=== PATIENT | female | born 1995 | race Caucasian/White ===

== ENCOUNTER 2024-06-14 09:47 | Outpatient (AMB) | payer OTHER, SELFPAY ==
--- NOTE | 2024-06-14 10:20 | AM.OFFWIN_ITS ---
Intake Vital Signs 06/14/24 10:27 Weight 110 lb 4 oz BP 120/78 Blood Pressure Location Rt brachial Position Sitting Pulse 100 Pulse Source Pulse Oximeter Temp 98.3 F Temp Source Oral Pulse Oximetry (%) 99 Oxygen Delivery Method Room Air Intake Visit Reasons: EP ? sinus infection Intake Note: Patient here for sinus pressure, teeth pain that has been present for about 6 days, she has been taking sudafed w/no relief. Patient Tobacco Use Status: Never used Tobacco Allergies amoxicillin Allergy (Mild, Verified 06/14/24 10:29) Stomach Upset HPI HPI Comments History of Present Illness Details History - The patient is a 29-year-old female pr esenting with persistent sinus pressure and related symptoms. - Persistent sinus pressure began 6 days ago causing significant discomfort in the sinus region and upper teeth, interfering with sleep. - Despite using pseudoephedrine, symptom s have not improved as expected. - Congestion is present with mucus disch arge after using a neti pot. - Patient denied ear pain and fever. - Reported fatigue potentially related t o acute illness and busy academic schedule. - Previous negative gastrointestinal amarjit ction to amoxicillin and advised on alternative antibiotic cephalexin for potential bacterial cause. - Fluticasone nasal spray was initially used without effect. Physical Exam General: Cooperative, healthy appearing, comfortable and no acute distress Orientation/consciousness: Patient oriented x3 Limitations: No limitations Head: Normal to inspection Ears: Hearing grossly normal bilaterally, external ears normal and TM's normal bilaterally Nose: Normal external nose present, Normal nares present and Congestion present Face and sinus: Normal facial exam and frontal sinuses tender Mouth: Normal oral and palatal mucosa present and moist mucous membranes Throat: Yes tonsils normal, Yes uvula midline. Posterior oropharynx erythema Eyes: Appearance normal, both eyes and all related structures Neck: Normal visual inspection Respiratory: Normal respiratory effort, able to speak in complete sentences, no respiratory distress, not tachypneic, no tripod positioning and no use of accessory muscles Skin: No rashes or lesions noted Neuro: Patient oriented x3 Extremities: Normal to inspection and Yes no clubbing, cyanosis or edema PFSH Social History Patient Tobacco Use Status: Never used Tobacco Review of Systems Const All systems reviewed & are unremarkable except as noted in HPI and below Physical Exam Vital Signs: Last Vital Signs Temp 98.3 F 06/14/24 10:27 Pulse 100 06/14/24 10:27 BP 120/78 06/14/24 10:27 Pulse Ox 99 06/14/24 10:27 Oxygen Delivery Method Room Air 06/14/24 10:27 Assessment & Plan Assessment & Plan (1) Acute bacterial sinusitis: Code(s): J01.90 - Acute sinusitis, unspecified; B96.89 - Other specified bacterial agents as the cause of diseases classified elsewhere Plan: VSS, pt well appearing and PE remarkable for frontal sinus tenderness. Cephalexin was prescribed BID for 7 days to address acute sinusitis symptoms, particularly in light of previous amoxicillin intolerance. The patient was advised to continue pseudoephedrine judiciously under consideration of potential rebound effects. The use of a neti pot and proper technique for Flonase nasal spray were emphasized to enhance symptom relief. The patient was instructed on using distilled or boiled water for the neti pot. Follow-up for any worsening or persistent symptoms was implied to ensure adequate response to the treatment plan. Patient was instructed on proper use of Flonase. Patient was informed and verbally consented to the use of an ambient scribe for clinic note documentation during this visit Medications: New cephalexin 500 mg PO Q12H 14 caps 0RF Coding Level of Care Code New Pt Level 3 (45557) Diagnoses Acute bacterial sinusitis J01.90; B96.89
[2024-06-14 10:27] VITALS: BP 120/78; PULSE 100; TEMP 36.8; O2SAT 99
--- OUTSIDE RECORDS SUMMARY | 2024-06-14 11:04 | XMS_ITS | Encounter Summary ---
Author Organization [facility] Address [address] [place] [address] Phone Care Team Providers Care Garage Mechanic Name Role Phone Dee Austin MERCHANDISE PRESENTATION ASSOCIATE Primary Care Provider Un available Encounter Details Date Type Department Care Team (Late st Contact Info) Description 12/03/2011 Documentation EM Family Medicine [address] [place] [address] Family Medicine, Physician [address] [place] [address] Social History Tobacco Use Types Packs/Day Years Used Date Smoking Tobacco: Never Assessed Comments Unknown Sex and Gender Information Value Date Recorded Sex Assigned at Not on file Legal Sex Female 4:43 PM EDT Gender Identity Not on file Sexual Orientation Not on file documented as of this encounter Plan of Treatment Not on file documented as of this encounter Visit Diagnoses Not on filedocumented in this encounter Care Teams Garage Mechanic Relationship Specialty Start Date End Date Dee Austin NP PCP - General 09/27/16 documented as of this encounter
--- OUTSIDE RECORDS SUMMARY | 2024-06-14 11:04 | XMS_ITS | Encounter Summary ---
Author Organization [facility] Address [address] [place] [phone] Phone Care Team Providers Care Territory Sales Manager Medical Name Role Phone Dee Austin COORDINATOR OF REHABILITATION SERVICES Primary Care Provider Un available Encounter Details Date Type Department Care Team (Late st Contact Info) Description 12/02/2011 Documentation EM Family Medicine [address] [place] [address] Family Medicine, Physician [address] [place] [address] Social History Tobacco Use Types Packs/Day Years [...] on filedocumented in this encounter Care Teams Territory Sales Manager Medical Relationship Specialty Start Date End Date Dee Austin NP PCP - General 09/27/16 documented as of this encounter
--- OUTSIDE RECORDS SUMMARY | 2024-06-14 11:04 | XMS_ITS | Encounter Summary ---
Author Organization [facility] Address [address] [place] [address] Phone Care Team Providers Care Sign Painter Apprentice Name Role Phone Dee Austin BELT WEAVER Primary Care Provider Un available Encounter Details Date Type Department Care Team (Late st Contact Info) Description 10/03/2016 Conversion Encounter [facility] - [address] [id number] Social History Tobacco Use Types Packs/Day Years Used Date Smoking Tobacco: Never Comments:Never smoker Comments Unknown Sex and Gender Information Value Date Recorded Sex Assigned at Not on file Legal Sex Female 4:43 PM EDT Gender Identity Not on file Sexual Orientation Not on file documented as of this encounter Plan of Treatment Not on file documented as of this encounter Visit Diagnoses Not on filedocumented in this encounter Care Teams Sign Painter Apprentice Relationship Specialty Start Date End Date Dee Austin NP PCP - General 09/27/16 documented as of this encounter
--- OUTSIDE RECORDS SUMMARY | 2024-06-14 11:04 | XMS_ITS | Encounter Summary ---
Author Organization [facility] Address [address] [place] [address] Phone Care Team Providers Care Chip Loft Worker Name Role Phone Dee Austin PRINTED CIRCUIT BOARD DRAFTER Primary Care Provider Un available Encounter Details Date Type Department Care Team (Late st Contact Info) Description 12/03/2011 Documentation EM Family Medicine [address] [place] [address] Family Medicine, Physician [address] [place] [address] Social History Tobacco Use Types Packs/Day Years [...] on filedocumented in this encounter Care Teams Chip Loft Worker Relationship Specialty Start Date End Date Dee Austin NP PCP - General 09/27/16 documented as of this encounter
--- OUTSIDE RECORDS SUMMARY | 2024-06-14 11:04 | XMS_ITS | Encounter Summary ---
Author Organization [facility] Address [address] [place] [address] Phone Care Team Providers Care E Mail System Administrator Name Role Phone Dee Austin DUPLEX TRIMMER Primary Care Provider Un available Encounter Details Date Type Department Care Team (Late st Contact Info) Description 02/22/2013 Documentation EM Family Medicine [address] [place] [address] Family Medicine, Physician [address] [place], [place] [address] Social History Tobacco Use Types Packs/Day Years [...] on filedocumented in this encounter Care Teams E Mail System Administrator Relationship Specialty Start Date End Date Dee Austin NP PCP - General 09/27/16 documented as of this encounter
--- OUTSIDE RECORDS SUMMARY | 2024-06-14 11:04 | XMS_ITS | Encounter Summary ---
Author Organization [facility] Address [address] [place] [address] Phone Care Team Providers Care Commercial Solar Sales Consultant Name Role Phone Dee Austin CERTIFIED NUTRITIONIST Primary Care Provider Un available Encounter Details Date Type Department Care Team (Late st Contact Info) Description 02/22/2013 Documentation EM Family Medicine [address] [place] [address] Family Medicine, Physician [address] [place], [place] [phone] Social History Tobacco Use Types Packs/Day Years [...] on filedocumented in this encounter Care Teams Commercial Solar Sales Consultant Relationship Specialty Start Date End Date Dee Austin NP PCP - General 09/27/16 documented as of this encounter
--- OUTSIDE RECORDS SUMMARY | 2024-06-14 11:04 | XMS_ITS | Encounter Summary ---
Author Organization [facility] Address [address] [place] [address] Phone Care Team Providers Care Debt Counselor Name Role Phone Dee Austin DESTATICIZER FEEDER Primary Care Provider Un available Encounter Details Date Type Department Care Team (Late st Contact Info) Description 01/22/2010 Documentation EM Family Medicine [address] [place] [address] Family Medicine, Physician [address] [place] [address] Social History Tobacco Use Types Packs/Day Years [...] on filedocumented in this encounter Care Teams Debt Counselor Relationship Specialty Start Date End Date Dee Austin NP PCP - General 09/27/16 documented as of this encounter
--- OUTSIDE RECORDS SUMMARY | 2024-06-14 11:04 | XMS_ITS | Encounter Summary ---
Author Organization [facility] Address [address] [place] [address] Phone Care Team Providers Care Scrap Bunch Maker Name Role Phone Dee Austin PARTS CASTING MACHINE OPERATOR Primary Care Provider Un available Encounter Details Date Type Department Care Team (Late st Contact Info) Description 02/22/2013 Documentation EM Family Medicine [address] [place] [address] Family Medicine, Physician [address] [place], [place] [address] Social History Tobacco Use Types Packs/Day Years [...] on filedocumented in this encounter Care Teams Scrap Bunch Maker Relationship Specialty Start Date End Date Dee Austin NP PCP - General 09/27/16 documented as of this encounter
--- OUTSIDE RECORDS SUMMARY | 2024-06-14 11:04 | XMS_ITS | Clinical Summary ---
Author Organization [facility] Address [address] [place] [address] Phone Care Team Providers Care Cardroom Manager Name Role Phone Dee Austin NP Primary Care Provider Un available Immunizations Immunization Administration Dates Next Due DTP 09/12/1994, 4,1993,05/15 DTaP 5 03/09/1998 H1N1 12/28/2008 HPV, Quadrivalent 01/18/2010,03/28/2009,12/29/19 09 Hep B, ped/adol 01/01/1994,1993,1993 Hib (PRP-T) 06/06/1994, 4,1993,05/15 IPV 1993,1993,1993 Influenza Split 11/29/2011,01/18/2010 Influenza, injectable, quadr ivalent, preservative free 02/19/2013 Influenza, injectable, trivalent 02/04/2008 MMR 03/09/1998,03/19/1994 Meningococcal Conj (Menactra) MCV4P 12/07/2007 Tdap 12/05/2005 Varicella 12/28/2008,05/21/2000 Family History Relation Name Status Comments Brother Alive Brother: Alive and well, Autism Father Father: Diabete s mellitus, Hyperlipidemia, Diabetes mellitus type 1 Mother Alive Mother: Alive a nd well Other No family histo ry of *CVA/Stroke, No family history of *Dental caries, No family history of Developmental dislocation of hip, No family history of Sudden /AL under age 55, Family history of Asthma, No family history of Strabismus, No family history of Strabismus/amblyopia, No family history of Seizure disorder, No family history of *Thrombophilia, No family history of Migraines, No family history of *Heart Disease, No family history of Elevated cholesterol, No family history of *Sudden /AL under 55, No family history of Autism, No family history of Deafness, No family history of Obesity Social History Tobacco Use Types Packs/Day Years Used Date Smoking Tobacco: Never Comments:Never smoker Comments Unknown Sex and Gender Information Value Date Recorded Sex Assigned at Not on file Legal Sex Female 4:43 PM EDT Gender Identity Not on file Sexual Orientation Not on file Last Filed Vital Signs Vital Sign Reading Time Taken Comments Blood Pressure 113/68 05/06/2013 12:00 AM EDT Pulse 87 05/06/2013 12:00 AM EDT Temperature 37.2 ??C (98.9 ??F) 02/19/2013 12:[address] Respiratory Rate - - Oxygen Saturation - - Inhaled Oxygen Concentration - - Weight 42.6 kg (94 lb) 05/06/2013 12:00 AM EDT Height 154.9 cm (5' 1 ) 05/06/2013 12:00 AM EDT Body Mass Index 17.76 05/06/2013 12:00 AM EDT Plan of Treatment Health Maintenance Due Date Last Done Comments IPV Vaccines (4 of 4 - 4-dose series) 1997 1993, 1993, 1993 DTaP,Tdap,and Td Vaccines (7 - Td or Tdap) 12/06/2015 12/05/2005, 03/09/1998, 09/12/1994, Additional history exists Influenza Vaccines (#1) 2023 02/19/19 14, 11/29/2011, 01/18/2010, Additional history exists COVID-19 Vaccine ( season) 2023 Hepatitis B Vaccines Completed 01/01/1994, 1993, 1993 HIB Vaccines Completed 06/06/1994, 09/17, 1993, Additional history exists MMR Vaccines Completed 03/09/1998, 03/19/1994 Meningococcal Vaccine Aged Out 12/07/2007 No chap[place]ito harley eligible based on patient's age to complete this topic Varicella Vaccines Completed 12/28/2008, 05/21/2000 HPV Vaccines Completed 01/18/2010, 10/2009, 12/28/2008 Hepatitis A Vaccines Aged Out No long er eligible based on patient's age to complete this topic Men B Vaccine Aged Out No longer elig ible based on patient's age to complete this topic Pneumococcal Vaccine Aged Out No long er eligible based on patient's age to complete this topic Procedures * Due to [place] [employer] law, this organization might not be sharing sensitive test results. Procedure Name Priority Date/Time Associated Diagnosis Comments CHLAMYDIA AND GONORRHEA, AMPLIFIED Routine 02/02/2013 3:39 PM EST from Last 3 Months or Most Recently Relevant to Health Maintenance Results * Due to [place] [employer] law, this organization might not be sharing sensitive test results. * Chlamydia and Gonorrhoea, Amplified (02/02/2013 3:39 PM EST) URINE GC AMP PROBE NEGATIVE [facility] Comment: NO NEISSERIA GONORRHOEAE RNA DETECTED IN THIS PATIENT'S SAMPLE. ? (REFERENCE RANGE/NORMAL VALUE: NOT DETECTED) ? NOTE: THIS TEST USES PASTOR-MEDIATED AMPLIFICATION METHOD TO DETECT rRNA FROM C.TRACHOMATIS AND N.GONORRHOEAE. A NEGATIVE RESULT DOES NOT PRECLUDE INFECTION. THE APTIMA COMBO 2 ASSAY IS NOT INTENDED FOR THE EVALUATION OF SUSPECTED SEXUAL ABUSE OR FOR OTHER MEDICO LEGAL INDICATIONS. THERAPEUTIC FAILURE OR SUCCESS CANNOT BE DETERMINED WITH THE APTIMA COMBO 2 ASSAY SINCE NUCLEIC ACID MAY PERSIST FOLLOWING APPROPRIATE ANTIMICROBIAL THERAPY. IN THE CASE OF A NEGATIVE URINE RESULT, TESTING OF AN ENDOCERVICAL (FEMALE) OR URETHRAL (MALE) SPECIMEN IS RECOMMENDED IF THERE IS HIGH CLINICAL SUSPICION OF INFECTION. URINE CHLAMYDIA AMP PROBE NEGATIVE [facility] Comment: NO CHLAMYDIA TRACHOMATIS RNA DETECTED IN THIS PATIENT'S SAMPLE. ? (REFERENCE RANGE/NORMAL VALUE: NOT DETECTED) 02/02/2013 3:39 PM EST Narrative [facility] - 02/02/2013 3:39 PM EST URINE CHLAMYDIA GC AMP PROBE us Jody Cox MD LAB MICROBIOLOGY - GENERAL ORDER ISELA Final Result [facility] [address] [place] [address], [place] from Last 3 Months or Most Recently Relevant to Health Maintenance Care Teams Cardroom Manager Relationship Specialty Start Date End Date Dee Austin NP PCP - General 09/27/16
--- OUTSIDE RECORDS SUMMARY | 2024-06-14 11:04 | XMS_ITS | Encounter Summary ---
Author Organization [facility] Address [address] [place] [phone] Phone Care Team Providers Care Service Delivery Management Consultant Name Role Phone Dee Austin DRILLING ENGINEERING MANAGER Primary Care Provider Un available Encounter Details Date Type Department Care Team (Late st Contact Info) Description 07/21/2014 Documentation EM Family Medicine [address] [place] [address] Family Medicine, Physician [address] [place] [address] Social History Tobacco Use Types Packs/Day Years [...] on filedocumented in this encounter Care Teams Service Delivery Management Consultant Relationship Specialty Start Date End Date Dee Austin NP PCP - General 09/27/16 documented as of this encounter
--- OUTSIDE RECORDS SUMMARY | 2024-06-14 11:04 | XMS_ITS | Encounter Summary ---
Author Organization [facility] Address [address] [place] [address] Phone Care Team Providers Care Mail Handler Name Role Phone Dee Austin ORACLE FUSION MIDDLEWARE DEVELOPER Primary Care Provider Un available Encounter Details Date Type Department Care Team (Late st Contact Info) Description 01/22/2010 Documentation EM Family Medicine [address] [place] [address] Family Medicine, Physician [address] [place] [address] Social History Tobacco Use Types Packs/Day Years [...] on filedocumented in this encounter Care Teams Mail Handler Relationship Specialty Start Date End Date Dee Austin NP PCP - General 09/27/16 documented as of this encounter
--- OUTSIDE RECORDS SUMMARY | 2024-06-14 11:04 | XMS_ITS | Encounter Summary ---
Author Organization [facility] Address [address] [place] [address] Phone Care Team Providers Care Foam Molder Name Role Phone Dee Austin BUSINESS TECHNOLOGY ARCHITECT Primary Care Provider Un available Encounter Details Date Type Department Care Team (Late st Contact Info) Description 10/17/2011 Documentation EM Family Medicine [address] [place] [address] Family Medicine, Physician [address] [place] [address] Social History Tobacco Use Types Packs/Day Years [...] on filedocumented in this encounter Care Teams Foam Molder Relationship Specialty Start Date End Date Dee Austin NP PCP - General 09/27/16 documented as of this encounter
--- OUTSIDE RECORDS SUMMARY | 2024-06-14 11:04 | XMS_ITS | Encounter Summary ---
Author Organization [facility] Address [address] [place] [address] Phone Care Team Providers Care Hop Sorter Name Role Phone Dee Austin RIVETER PORTABLE MACHINE Primary Care Provider Un available Encounter Details Date Type Department Care Team (Late st Contact Info) Description 06/02/2013 Documentation EM Family Medicine [address] [place] [address] Family Medicine, Physician [address] [place], [place] [address]171 Social History Tobacco Use Types Packs/Day Years [...] on filedocumented in this encounter Care Teams Hop Sorter Relationship Specialty Start Date End Date Dee Asutin NP PCP - General 09/27/16 documented as of this encounter
--- OUTSIDE RECORDS SUMMARY | 2024-06-14 11:04 | XMS_ITS | Encounter Summary ---
Author Organization [facility] Address [address] [place] [address] Phone Care Team Providers Care Senior Production Manager Name Role Phone Dee Austin FINAL BLOCK PRESS OPERATOR Primary Care Provider Un available Encounter Details Date Type Department Care Team (Late st Contact Info) Description 01/22/2010 Documentation EM Family Medicine [address] [place] [address] Family Medicine, Physician [address] [place] [address] Social History Tobacco Use Types Packs/Day Years [...] on filedocumented in this encounter Care Teams Senior Production Manager Relationship Specialty Start Date End Date Dee Austin NP PCP - General 09/27/16 documented as of this encounter
--- OUTSIDE RECORDS SUMMARY | 2024-06-14 11:04 | XMS_ITS | Encounter Summary ---
Author Organization [facility] Address [address] [place] [address] Phone Care Team Providers Care Network Account Manager Name Role Phone Dee Austin VACUUM CLEANER REPAIR PERSON Primary Care Provider Un available Encounter Details Date Type Department Care Team (Late st Contact Info) Description 05/26/2013 Documentation EM Family Medicine [address] [place] [address] Family Medicine, Physician [address] [place], [place] [address] Social History Tobacco Use Types Packs/Day Years [...] on filedocumented in this encounter Care Teams Network Account Manager Relationship Specialty Start Date End Date Dee Austin NP PCP - General 09/27/16 documented as of this encounter
== END 2024-06-14 10:59 | disposition home or self-care (01) ==
PROVIDERS: PCP Pediatrics; Visit Provider Physician Assistant
DX: J01.90 Acute sinusitis, unspecified (principal); B96.89 Other specified bacterial agents as the cause of diseases classified elsewhere

== ENCOUNTER → 2024-06-14 09:47 | Outpatient (BNVA) | payer MEDICAID, SELFPAY | PROVIDERS: PCP Pediatrics; Visit Provider Physician Assistant ==